=== PATIENT | male | born 1965 | race Caucasian/White ===

== ENCOUNTER → 2023-08-27 12:58 | Outpatient (REF) | payer MEDICARE, SELFPAY ==
[2023-08-27 13:34] LABS: % Basophils 0.4 % (0-2); % Eosinophils 3.9 % (0-6); % Immature Granulocytes 0.1 % (0-0.5); % Lymphocytes 23.8 % (20.5-51.1); % Monocytes 11.7 % (1.7-9.3); % Neutrophils 60.1 % (42.2-75.2); Absolute Eosinophils 0.3 10^3/uL (0-0.7); Absolute Lymphocytes 1.6 10^3/uL (1.2-3.4); Absolute Monocytes 0.8 10^3/uL (0.1-0.6); Hematocrit 43.9 % (39.0-52.0); Hemoglobin 14.9 g/dL (13.0-18.0); Mean Corp Hgb Conc. 33.9 g/dL (33.0-37.0); Mean Corpuscular Hgb 31.1 pg (27.0-31.0); Mean Corpuscular Volume 91.6 fL (80.0-94.0); Mean Platelet Volume 10.3 fL (7.4-10.4); Nucleated Red Blood Cells % 0 % (-); Platelet Count 200 10^3/uL (130-400); Red Blood Cell Count 4.79 10^6/uL (4.70-6.10); Red Cell Dist. Width 12.4 % (11.5-14.5); White Blood Cell Count 6.7 10^3/uL (4.8-10.8)
[2023-08-27 13:46] LABS: ALT (SGPT) 23 U/L (0-50); AST (SGOT) 24 U/L (17-59); Albumin 4.2 g/dl (3.5-5.0); Alkaline Phosphatase 73 U/L (38-126); Blood Urea Nitrogen 22 mg/dl (9-20); Calcium 8.9 mg/dl (8.4-10.2); Carbon Dioxide 33 mmol/L (22-30); Chloride 101 mmol/L (98-107); Glucose 115 mg/dl (70-99); Magnesium 1.9 mg/dl (1.6-2.3); Potassium 3.9 mmol/L (3.5-5.1); Sodium 138 mmol/L (135-145); Total Bilirubin 0.7 mg/dl (0.2-1.3); Total Protein 6.6 g/dl (6.3-8.2); eGFR > 60.00
[2023-08-27 13:52] LABS: INR 1.06; PT 13.6 Sec (11.4-14.6)
== END ==
LOC: SDSPAT 12:58
PROVIDERS: ATTENDING PHYSICIAN Internal Medicine Cardiovascular Disease; FAMILY PHYSICIAN Family Medicine
DX: Z01.818 Encounter for other preprocedural examination (principal); I48.19 Other persistent atrial fibrillation; I48.92 Unspecified atrial flutter
CPT/HCPCS: 36415; 75572; 80053; 83735; 85025; 85610; 86850; 86900; 86901; Q9967

== ENCOUNTER 2023-08-30 06:57 | Day surgery (SDC) | payer MEDICARE, SELFPAY ==
[2023-08-27 13:01] VITALS: BMI 48.7
[2023-08-30 07:38] LABS: Glucose - Point of Care 145 mg/dl (70-99)
== END 2023-08-30 09:30 | disposition home or self-care (01) ==
LOC: CATH 06:57
PROVIDERS: ATTENDING PHYSICIAN Internal Medicine Cardiovascular Disease; FAMILY PHYSICIAN Family Medicine; OTHER PHYSICIAN Internal Medicine Cardiovascular Disease
DX: I48.19 Other persistent atrial fibrillation (principal); I07.1 Rheumatic tricuspid insufficiency; I48.92 Unspecified atrial flutter; I11.0 Hypertensive heart disease with heart failure; I50.32 Chronic diastolic (congestive) heart failure; E11.9 Type 2 diabetes mellitus without complications; E66.9 Obesity, unspecified; Z68.42 Body mass index [BMI] 45.0-49.9, adult; G47.33 Obstructive sleep apnea (adult) (pediatric); Z87.891 Personal history of nicotine dependence; Z79.01 Long term (current) use of anticoagulants; Z79.84 Long term (current) use of oral hypoglycemic drugs
CPT/HCPCS: 93312; 93320; 93325; 82962

== ENCOUNTER 2023-09-03 06:12 | Day surgery (SDC) | payer MEDICARE, SELFPAY ==
[2023-08-27 13:10] VITALS: BMI 48.7
[2023-09-03] VITALS (16 sets, daily range): BP systolic 80–111; BP diastolic 46–75; BMI 48.7
[2023-09-03 06:54] LABS: Glucose - Point of Care 118 mg/dl (70-99)
[2023-09-03] MEDS: TYLENOL 1000 MG PO (07:32)
[2023-09-03 09:46] LABS: ACT-LR - POC 253 Seconds (116-155)
[2023-09-03 10:01] LABS: Glucose - Point of Care 118 mg/dl (70-99)
[2023-09-03 10:09] LABS: ACT-LR - POC 285 Seconds (116-155)
[2023-09-03 10:25] LABS: ACT-LR - POC 321 Seconds (116-155)
[2023-09-03 13:25] LABS: Glucose - Point of Care 160 mg/dl (70-99)
--- NOTE | 2023-09-03 13:41 | PTCARENOTE ---
received pt from recovery area. B/L groin sites CDI. educated on expected OOB time and suture removal. no complaints of pain or discomfort. call michaels within reach.
--- NOTE | 2023-09-03 14:12 | ITS.CL.ABL ---
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
Ablation
Procedure Report:
ELECTROPHYSIOLOGIC STUDY AND POSSIBLE ABLATION
DATE: 09/03/23
Primary Care Provider: Dr Lakeshia Chi
Primary rail switch operator: Dr Josh Snyder
Padded Box Sewer: Ed Sheth M.D.
INDICATION:
Symptomatic Atrial Flutter and Fibrillation.
Persistent
HISTORY: See H and P.
Symptomatic AF, poorly controlled with attempted medical therapy.
He was referred for electrophysiologic consultation from Dr. Snyder regarding symptomatic atrial arrhythmias (both atrial flutter and atrial fibrillation).
He was treated with amiodarone and then ultimately underwent cardioversion on June 24, 2023 at [facility] but then recurred with symptomatic atrial flutter.
Review of medical records show that he had a complex recent history. April 08, 2023 he was admitted to [facility] with Pseudomonas pneumonia, ARDS, respiratory failure requiring prolonged intubation and mechanical ventilation as well as
both trach and PEG tube, now both decannulated. He also has obesity.
Echocardiogram report from July 02, 2023 notes normal left ventricular systolic function with ejection fraction of 55 to 60%. Right atrium is noted to be mildly enlarged. Normal right ventricular size and function.
HAS-BLED: 0
CHADSVASc:
DM
... Potential additional conditions adding to his thromboembolic risk include continuing tobacco use, morbid obesity and obstructive sleep apnea as well as persistent atrial arrhythmia.
PRESENTING RHYTHM: Atrial flutter
ANTIARRHYTHMIC DRUG: Amiodarone
ANTICOAGULATION: Eliquis
'TIME-OUT': called and confirmed.
SEDATION/ANESTHESIA: provided via the anesthesia department using general anesthesia.
INTRAVENOUS/ARTERIAL ACCESS:
Right femoral venous - 8Fr ( up-sized for Arctic Front Flex Sheath - 15 Fr)
Left femoral venous - 7 Fr, 9 Fr,
PROCEDURE:
Ultrasound Guidance performed by ar was utilized for femoral venous Vascular Access b/l.
A decapolar CS catheter was placed within the CS for mapping and pacing.
Initial mapping of the presenting arrhythmia suggest right atrial flutter. Activation mapping as well as entrainment mapping identifies counterclockwise cavotricuspid isthmus dependent right atrial flutter.
A 4 mm tip irrigated contact sensing catheter was then navigated to the cavotricuspid isthmus. A series of discrete RF applications were given starting from the tricuspid annulus down to the IVC at approximately the 6 o'clock position and 30
degrees WELSH view. During RF energy delivery atrial flutter slowed and then terminated. Several more lesions were given along this line to ensure bidirectional block. Bidirectional block was proven by differential pacing from either side of the
line. Next attention was turned towards mapping and ablation regarding his atrial fibrillation.
The intracardiac ultrasound catheter was positioned in the RA. No PASQUALE clot was seen and the LA/PV anatomy was defined. ICE was also used to identify the FO/IAS for targeting of transseptal puncture, assist in identification of the pulmonary vein
ostia, monitoring for PV ostial balloon occlusion using Doppler flow, and to monitor for mechanical injury.
Heparin bolus was administered prior to the transseptal puncture. Transeptal puncture was completed while monitoring intracardiac ultrasound, fluoroscopy and tip pressure. Left atrial catheter position was confirmed by pressure monitoring (RA mean
pressure 13 mm Hg and LA mean pressure 18] mm Hg), as well as fluoroscopy. The sheath was advanced over the dilator and positioned in the left atrium. Heparin was infused to target ACT at 300 -400 seconds throughout the case.
The multi-pole ring mapping catheter was positioned through the sheath into the LA and then the PV ostia were mapped. The 3-D electroanatomical map was created using [employer]. A 3-D reconstructed CT image was compared to the 3-D map to assist in
anatomic interpretation, mapping and ablation. Cryothermal energy was utilized for PV isolation to electrically isolate each PV ostia using the 28 mm Arctic Front balloon. All PVPs were eliminated at each vein demonstrating entrance block.
LSPV LIPV RSPV RIPV
Freeze 1 TI (sec): na na 18 na
TT0 (sec): 27 14 14 26
[place] temp: - 65 - 58 - 70 - 62
Additional cryoballoon applications were delivered to the ostium of the left superior pulmonary vein, right superior pulmonary vein and right inferior pulmonary vein resulting in complete ostial isolation with both entrance and exit block. An
additional ablation lesion set was required to result in wide area circumferential ablation at the right sided pulmonary veins. This involved additional cryoballoon application at the sally between the right superior and right inferior pulmonary
vein as well as the dome of the left atrium anteriorly at the antrum of the right superior pulmonary vein. At the end of ablation, wide area circumferential ablation is present around both pulmonary vein sets.
Programmed electrical stimulation failed to induce any sustained arrhythmias.
An esophageal temperature probe was positioned at the level of the mid LA to delineate the course of the esophagus as well as monitor for any significant temperature changes during ablation. The temperature probe was repositioned to best correlate
to the level of ablation delivery. [place] esophageal temperature is 33 �C and occurred during cryo-balloon application at the RIPV .
The right phrenic nerve was continuously paced above the level of the R PVs via the SVC decapolar catheter during all right-sided cryo-application. Diaphragmatic CMAP was continuously monitored.
CMAP transiently reduced with the initial balloon application at the right superior pulmonary vein prompting abrupt termination of energy delivery. Subsequent energy delivery was delivered at 1 proximal location had no negative effect on the
compound motor action potential. At no point was there any reduction in or loss of diaphragmatic contraction
I.C.E. :
Pre-Ablation Post-Ablation
LVEF: 55 % 55 %
WMA: none none
Pericardial effusion: none none
Fluoroscopic exposure : 18 minutes, 300 mGy
COMPLICATIONS:
None
SUMMARY:
- Mapping and ablation to isolate the PVs
- Additional AF ablation set after PVI.
- Mapping and ablation of second tachycardia (SVT which is typical counterclockwise right atrial flutter)
- 3-D Electroanatomical Mapping
- Intracardiac Ultrasound
- Ultrasound Guidance for Vascular Access.
Post ablation, I discussed today's findings and results with the patient's listed contact.
RECOMMENDATIONS:
- Observe in monitored bed.
- Maintain oral anticoagulation.
- Discontinue amiodarone
- Importance of lifestyle modification with a goal of weight loss, tobacco cessation, strict compliance with CPAP therapy, routine aerobic exercise and good control of diabetes mellitus was once again reinforced with the patient
- Continue cardiovascular care with Dr Snyder
Copy to:
Dr Lakeshia Chi
Dr Josh Snyder
[2023-09-03] MEDS: NOVOLOG FLEXPEN-MODERATE RESISTANCE 1 UNITS SC ×2 (14:53→17:43)
--- NOTE | 2023-09-03 15:50 | CM ---
Chart reviewed. Patient is independent of ADLS, lives alone in a 1st floor apartment, 3 JACOB, 0 DME. Patient currently with no needs. Plan is for the patient to return home. CM to follow
[2023-09-03] MEDS: ELIQUIS 5 MG PO (17:28)
[2023-09-03] MEDS: NEURONTIN 300 MG PO (17:28)
[2023-09-03 17:44] LABS: Glucose - Point of Care 158 mg/dl (70-99)
[2023-09-03] MEDS: TOPROL XL 25 MG PO (19:46)
[2023-09-03 21:48] LABS: Glucose - Point of Care 136 mg/dl (70-99)
--- NOTE | 2023-09-03 22:04 | PTCARENOTE ---
OOB to bathroom with supervision, tolerated well. Voiding without difficulty. SR on the monitor in the 80's.
[2023-09-04 05:29] VITALS: BP 113/69
[2023-09-04 06:18] LABS: Hemoglobin 13.6 g/dL (13.0-18.0); Mean Corp Hgb Conc. 33.2 g/dL (33.0-37.0); Mean Corpuscular Hgb 30.2 pg (27.0-31.0); Mean Corpuscular Volume 91.1 fL (80.0-94.0); Mean Platelet Volume 10.2 fL (7.4-10.4); Platelet Count 174 10^3/uL (130-400); Red Cell Dist. Width 12.2 % (11.5-14.5); White Blood Cell Count 11.2 10^3/uL (4.8-10.8)
[2023-09-04 06:52] VITALS: BP 105/67
[2023-09-04 06:53] LABS: Blood Urea Nitrogen 21 mg/dl (9-20); Calcium 7.9 mg/dl (8.4-10.2); Carbon Dioxide 25 mmol/L (22-30); Chloride 105 mmol/L (98-107); Estimated Creatinine Clearance > 125 ml/min; Glucose 145 mg/dl (70-99); Potassium 4.7 mmol/L (3.5-5.1); Sodium 134 mmol/L (135-145); eGFR > 60.00
[2023-09-04 06:57] LABS: Glucose - Point of Care 110 mg/dl (70-99)
[2023-09-04] MEDS: NOVOLOG FLEXPEN-MODERATE RESISTANCE SC (08:06)
--- NOTE | 2023-09-04 08:42 | W.PN.CARDCBS ---
Addendum entered and electronically signed by Ed Sheth MD 09/04/23 09:47:
Patient seen, interviewed and examined by me.
Well-appearing, no acute distress
Regular rate and rhythm with normal S1 and S2, no S3 no S4. There is a grade 1/6 apical holosystolic murmur and no rubs. PMI is normally placed.
Lungs are clear to auscultation bilaterally without wheezes rales or rhonchi.
Abdomen soft nontender nondistended with normoactive bowel sounds
Extremities show trace pretibial edema bilaterally no clubbing or cyanosis.
Neurologic exam is grossly nonfocal.
Agree with advanced practice professionals assessment and plan as noted below.
I once again had a discussion with the patient with strong encouragement to make progress towards weight loss, become more compliant with CPAP therapy, eliminate all alcohol use as a means to improve our ability to prevent recurrence of atrial
fibrillation and atrial flutter.
I also discussed with the patient the importance of maintaining oral anticoagulation as prescribed. While he does have some problems with cost he tells me that he should be able to get samples from [facility] and I asked him to call our office if he is
unable to obtain the appropriate samples from [facility].
All of his questions have been answered.
Original Note:
Today's Communication / Plan
-
post ablation stable for d/c home
Impression / Plan
-
Primary care physician: Beth Jansen DO
Primary accelerator systems director: Josh Snyder MD
Impression:
Symptomatic Afib/Aflutter
post PVI and SVT ablation 09/03/23
HTN
DM2
Chronic HFpEF 55-60%
NIGEL/Bipap
Pseudomonas Pneumonia/ARDS/VDRF 03/2023
Morbid obesity
SUMMARY:�
-� Mapping and ablation to isolate the PVs
-� Additional AF ablation set after PVI.�
-� Mapping and ablation of second tachycardia (SVT which is typical counterclockwise right atrial flutter)
-� 3-D Electroanatomical Mapping
-� Intracardiac Ultrasound
-� Ultrasound Guidance for Vascular Access.
Plan:
post ablation feels good
no cp, mild hypoxia o/n but has home O2 and bipap
groins stable
OAC Eliquis
Stop Amiodarone
continue metoprolol
Hold Metformin post procedure, resume on
Activity restrictions reviewed
f/u Dr. Snyder in 1 mo
home today
Progress Note - Front Desk Agent
Subjective
Date of Service: September 04, 2023
no cp, sob
Objective
Labs:
09/04/23 05:39
09/04/23 05:39
Labs
Hgb 13.6 g/dL (13.0-18.0) 09/04/23 05:39
Hct 41.0 % (39.0-52.0) 09/04/23 05:39
Plt Count 174 10^3/uL (130-400) 09/04/23 05:39
Sodium 134 mmol/L (135-145) L 09/04/23 05:39
Potassium 4.7 mmol/L (3.5-5.1) 09/04/23 05:39
BUN 21 mg/dl (9-20) H 09/04/23 05:39
Creatinine 0.8 mg/dL (0.7-1.3) 09/04/23 05:39
Glucose 145 mg/dl (70-99) H 09/04/23 05:39
Vital Signs and I&O:
Vital Signs
Temp Pulse Resp BP Pulse Ox
97.7 F 80 16 113/69 94
09/04/23 06:51 09/04/23 06:51 09/04/23 06:51 09/04/23 05:29 09/04/23 06:51
Vital Signs
Temp Pulse Resp BP Pulse Ox
97.7 F 80 16 113/69 94
09/04/23 06:51 09/04/23 06:51 09/04/23 06:51 09/04/23 05:29 09/04/23 06:51
Intake & Output
09/02/23 09/03/23 09/04/23 09/05/23
06:59 06:59 06:59 06:59
Intake Total 1880 / 1880
Output Total 700 / 700
Balance 1180 / 1180
Physical Exam
Physical Exam
NAD, AOX3
S1, S2, RRR
exp wheeze upper airways, diminished b/l bases, no rales or rhonchi
SNTND bsx4 obese
b/l groins c/d/i no HT, soft
[2023-09-04] MEDS: LASIX 20 MG PO (08:53)
[2023-09-04] MEDS: ELIQUIS 5 MG PO (08:53)
[2023-09-04] MEDS: TOPROL XL 25 MG PO (08:53)
[2023-09-04 09:29] LABS: Glycohemoglobin (HgbA1c) 6.1 % (4.0-5.6)
--- NOTE | 2023-09-04 09:51 | W.DS.TRANS ---
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
-
Discharge Instructions:
Discharge Diagnosis/Procedures AFib/Flutter, s/p ablation
Diet Low Cholesterol,Diabetic, Carb Controlled
Driving Restrictions No driving for 24 hours
Stop these medications: STOP amiodarone
Instructions:
Stand-Alone Forms: DC Instructions- Cath/EP Lab
Changes to Home Medications: Yes
Discharge Medications:
DC Medications w/original date entered in [email or web address]
apixaban 5 mg tablet (Eliquis) 5 mg PO BID 08/30/23
furosemide 20 mg tablet 20 mg PO DAILY 08/30/23
gabapentin 300 mg capsule 300 mg PO QPM 08/30/23
metformin 500 mg tablet 500 mg PO BID 08/30/23
metoprolol succinate 25 mg tablet,extended release 24 hr 25 mg PO BID 08/30/23
Home Medication Changes
stop amiodarone
Pending Results: No
--- NOTE | 2023-09-04 11:27 | PTCARENOTE ---
d/c instructions read to pt and pt verbalized understanding. pt IV and tele removed. pt left with belongings from room and educational material. pt left via wheelchair with staff member.
== END 2023-09-04 11:30 | disposition home or self-care (01) ==
LOC: CATH 06:12
PROVIDERS: Nurse Practitioner; ATTENDING PHYSICIAN Internal Medicine Cardiovascular Disease; FAMILY PHYSICIAN Family Medicine
DX: I48.19 Other persistent atrial fibrillation (principal); I48.92 Unspecified atrial flutter; I11.0 Hypertensive heart disease with heart failure; E11.9 Type 2 diabetes mellitus without complications; I50.32 Chronic diastolic (congestive) heart failure; G47.33 Obstructive sleep apnea (adult) (pediatric); E66.01 Morbid (severe) obesity due to excess calories; Z79.01 Long term (current) use of anticoagulants; Z87.09 Personal history of other diseases of the respiratory system; Z87.891 Personal history of nicotine dependence
CPT/HCPCS: C1766; C1893; C1894; C1730; C1769; C1733; C1892; C1759; 76937; 80048; 82962; 83036; 83735; 85027; 85347; 86900; 86901; 93005; 93655; 93656; 93657; C2630; Q9967